=== PATIENT | female | born 1980 ===

== ENCOUNTER 2017-10-09 08:00 | Inpatient (IN) | payer OTHER ==
[2017-10-17] MEDS ORDERED: KETOROLAC TROMETHAMINE 30 MG/1 ML VIAL ONE (13:44)
[2017-10-17] MEDS ORDERED: SUCCINYLCHOLINE CHLORIDE 200 MG/10 ML VIAL ONE (13:46)
[2017-10-17] MEDS ORDERED: PROPOFOL 20 ML ONE (13:46)
[2017-10-17] MEDS ORDERED: morphine SULFATE/Preservative Free 0.5 MG/ML (1cc Syringe) ONE (13:56)
[2017-10-17 13:57] LABS: BASO % 0.7 % (0-2.0); HEMATOCRIT 35.9 % (32.4-45.2); HEMOGLOBIN 11.8 GM/dL (10.7-15.3); LYMPH % 25.6 % (8-40); MCH 29.8 pg (25.7-33.7); MCHC 32.8 g/dl (32.0-36.0); MEAN CELL VOLUME 90.8 fl (80-96); MEAN PLT VOLUME 9.7 fl (7.5-11.1); NEUT % 62.7 % (42.8-82.8); PLATELET COUNT 204 K/MM3 (134-434); RBC 3.96 M/mm3 (3.60-5.2); RDW 14.1 % (11.6-15.6); WHITE BLOOD COUNT 8.6 K/mm3 (4.0-10.0)
[2017-10-17] MEDS ORDERED: ELECTROLYTE-148 SOLN 500 ML IV SCH (14:00)
[2017-10-17] MEDS ORDERED: CITRIC ACID/SODIUM CITRATE 30 ML UNIT-DOSE CUP PO ONE (14:00)
[2017-10-17] MEDS ORDERED: TUBERCULIN PPD 5 TU/0.1ML SYRINGE (IN PATIENT USE ONLY) ID ONE (14:00)
[2017-10-17 14:01] VITALS: BMI 32.6
[2017-10-17] MEDS ORDERED: ONDANSETRON 4 MG/2 ML VIAL IVPUSH PRN (14:01)
[2017-10-17] MEDS ORDERED: OXYTOCIN 10 UNITS/ML VIAL ONE ×2 (14:07→15:32)
[2017-10-17 14:11] LABS: INR 0.98 (0.82-1.09); PROTHROMBIN TIME (PATIENT) 11.1 SEC (9.98-11.88)
[2017-10-17 14:13] LABS: ACTIVATED PTT 29.1 SECONDS (26.9-34.4)
[2017-10-17 14:18] LABS: ANION GAP 9 (8-16); BLOOD UREA NITROGEN 7 mg/dL (7-18); CALCIUM 8.5 mg/dL (8.5-10.1); CHLORIDE 105 mmol/L (98-107); CO2 24 mmol/L (21-32); CREATININE 0.6 mg/dL (0.55-1.02); GLUCOSE,RANDOM 73 mg/dL (74-106); POTASSIUM 3.7 mmol/L (3.5-5.1); SODIUM 138 mmol/L (136-145)
[2017-10-17] MEDS ORDERED: ELECTROLYTE-148 SOLN 1,000 ML IV SCH ×2 (14:30→15:00)
--- NOTE | 2017-10-17 14:55 | HP ---
Past Medical History - Admission Chief Complaint: Elective History of Present Illness: 37 yo @ 40 weeks gestation with 3 previous C-Sections, is pre op for repeat . History Source: Patient Limitations to Obtaining History: No Limitations - Past Medical History ...: 5 ...Para: 4 ...Term: 4 ...: 0 ...Spon : 0 ...Induced : 0 ...Multiple Gestation: 0 ...LMP: 01/10/17 ... Weeks Gestation by Dates: 40.0 ...EDC by Dates: 10/17/17 ...EDC by Sono: 10/16/17 - Past Surgical History Past Surgical History: Yes: Hx Myomectomy: No Hx Transabdominal Cerclage: No - Smoking History Smoking history: Never smoked Have you smoked in the past 12 months: No - Alcohol/Substance Use Hx Alcohol Use: No - Social History Usual Living Arrangement: Yes: With Spouse History of Recent Travel: No Home Medications - Allergies Allergies/Adverse Reactions: Allergies Allergy/AdvReac Type Severity Reaction Status Date / Time No Known Allergies Allergy Verified 10/17/17 13:35 Family Disease History - Family Disease History Family History: Unremarkable Review of Systems - Review of Systems Constitutional: reports: No Symptoms Eyes: reports: No Symptoms HENT: reports: No Symptoms Neck: reports: No Symptoms Cardiovascular: reports: No Symptoms Respiratory: reports: No Symptoms Gastrointestinal: reports: No Symptoms Genitourinary: reports: No Symptoms Breasts: reports: No Symptoms Reported Musculoskeletal: reports: No Symptoms Integumentary: reports: No Symptoms Neurological: reports: No Symptoms Endocrine: reports: No Symptoms Pain Intensity: 0 Physical Exam - Maternity Vital Signs: Vital Signs Temperature 97.5 F L 10/17/17 13:15 Pulse Rate 86 10/17/17 13:15 Respiratory Rate 20 10/17/17 13:15 Blood Pressure 115/64 10/17/17 13:15 O2 Sat by Pulse Oximetry (%) Constitutional: Yes: Well Nourished Eyes: Yes: Conjunctiva Clear HENT: Yes: Atraumatic Neck: Yes: Supple Cardiovascular: Yes: Regular Rate and Rhythm Lungs: Clear to auscultation - Abdominal Exam/OB Number of Fetuses: Single Presentation: Vertex Contractions: No - Physical Exam Psychiatric: Yes: Alert, Oriented - Labs Lab Results: CBC, BMP 10/17/17 13:27 10/17/17 13:27 Problem List - Problems (1) Delivery by elective section Code(s): O82 - ENCOUNTER FOR DELIVERY WITHOUT INDICATION Assessment/Plan Previous Pre op for repeat Consent signed Anesthesia to see patient
[2017-10-17] MEDS ORDERED: ceFAZolin SODIUM 1 GM VIAL ONE ×2 (15:17)
[2017-10-17] MEDS ORDERED: ePHEDrine SULFATE 50 MG/1 ML AMPULE ONE (15:18)
[2017-10-17] MEDS ORDERED: oxyCODONE HCL 5 MG TABLET PO PRN (15:53)
[2017-10-17] MEDS ORDERED: METHYLERGONOVINE MALEATE 0.2 MG/1 ML AMP IM PRN (15:53)
--- NOTE | 2017-10-17 15:59 | OP ---
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
[2017-10-17] MEDS ORDERED: OXYTOCIN 20 UNITS in 0.9% NS 20 UNIT/1,000 ML INFUS.BAG IV SCH (16:00)
[2017-10-17] MEDS ORDERED: SEVOFLURANE 250 ML BTL ONE (17:16)
[2017-10-17] MEDS ORDERED: DESFLURANE GAS 240 ML BOTTLE IH ONE (17:16)
--- NOTE | 2017-10-18 06:42 | PN ---
Post Progress Note - Subjective Subjective: Pt seen/evaluated. Doing well. Pain controlled, tolerating clear diet. Armando draining clear yellow urine. No CP/SOB/F/C/PISANO. NO complaints. Type of Delivery: Repeat C/S Vital Signs: Vital Signs Temperature 97.9 F 10/18/17 06:00 Pulse Rate 69 10/18/17 06:00 Respiratory Rate 18 10/18/17 06:00 Blood Pressure 109/68 10/18/17 06:00 O2 Sat by Pulse Oximetry (%) 98 10/17/17 17:18 Uterus: Yes: Fundus Firm Lochia: Yes: Rubra Lochia, amount: Small Extremities: Yes: Calves non-tender Perineum: Yes: Intact Activity: Ambulating - Labs Labs: CBC WBC 8.6 K/mm3 (4.0-10.0) 10/17/17 13:27 RBC 3.96 M/mm3 (3.60-5.2) 10/17/17 13:27 Hgb 11.8 GM/dL (10.7-15.3) 10/17/17 13:27 Hct 35.9 % (32.4-45.2) 10/17/17 13:27 MCV 90.8 fl (80-96) 10/17/17 13:27 MCH 29.8 pg (25.7-33.7) 10/17/17 13:27 MCHC 32.8 g/dl (32.0-36.0) 10/17/17 13:27 RDW 14.1 % (11.6-15.6) 10/17/17 13:27 Plt Count 204 K/MM3 (134-434) 10/17/17 13:27 MPV 9.7 fl (7.5-11.1) 10/17/17 13:27 Neutrophils % 62.7 % (42.8-82.8) 10/17/17 13:27 Lymphocytes % 25.6 % (8-40) 10/17/17 13:27 Monocytes % 10.0 % (3.8-10.2) 10/17/17 13:27 Eosinophils % 1.0 % (0-4.5) 10/17/17 13:27 Basophils % 0.7 % (0-2.0) 10/17/17 13:27 Problem List - Problems (1) delivery delivered Code(s): O82 - ENCOUNTER FOR DELIVERY WITHOUT INDICATION (2) Delivery by elective section Code(s): O82 - ENCOUNTER FOR DELIVERY WITHOUT INDICATION Assessment/Plan 37 y/o POD#1 s/p repeat LTCS - AFVSS - CBC pending - advance diet as tolerated - encourage ambulation - routine care
[2017-10-18 08:45] LABS: BASO % 0.6 % (0-2.0); EOS % 1.3 % (0-4.5); HEMATOCRIT 32.3 % (32.4-45.2); HEMOGLOBIN 10.7 GM/dL (10.7-15.3); MCHC 33.3 g/dl (32.0-36.0); MEAN CELL VOLUME 90.2 fl (80-96); MEAN PLT VOLUME 9.4 fl (7.5-11.1); MONO % 11.9 % (3.8-10.2); NEUT % 71.2 % (42.8-82.8); PLATELET COUNT 178 K/MM3 (134-434); RBC 3.58 M/mm3 (3.60-5.2); RDW 14.1 % (11.6-15.6); WHITE BLOOD COUNT 11.4 K/mm3 (4.0-10.0)
[2017-10-18] MEDS ORDERED: ACETAMINOPHEN 325 MG TABLET (FP) ONE (08:46)
[2017-10-18] MEDS: IBUPROFEN 600 MG TABLET (FP) PO PRN ×4 (08:48→23:01)
[2017-10-18] MEDS: SIMETHICONE 80 MG TAB.CHEW (FP) PO PRN ×3 (08:48→18:19)
--- NOTE | 2017-10-18 10:54 | PN ---
Progress Note (short form) - Note Progress Note: Post op day#1.S/P C section under spinal anesthesia with duramorph uneventful.Patient stable and c/o some pain for which she is on medication.No any anesthesia related problem.Patient Dc from the anesthesia care.
[2017-10-18] MEDS: ACETAMINOPHEN 325 MG TABLET (FP) PO PRN ×3 (13:54→23:00)
[2017-10-18] MEDS ORDERED: BISACODYL 10 MG SUPP.RECT RC PRN (15:53)
--- NOTE | 2017-10-18 15:53 | OP ---
DATE OF OPERATION: 10/17/2017 PREOPERATIVE DIAGNOSIS: Intrauterine at 39 weeks with previous section. POSTOPERATIVE DIAGNOSIS: Elective section. PROCEDURE: Repeat low-transverse section. SURGEON: Danielle Wilson MD FIELD SERVICE COORDINATOR: FLAKITA Johnson ANESTHESIA: Spinal. COMPLICATIONS: None. ESTIMATED BLOOD LOSS: 600 mL. PROCEDURE: Patient was taken to the operating room, where spinal anesthesia was administered. Patient was then prepped and draped in proper sterile fashion. A Pfannenstiel skin incision was made and carried down to the underlying layer of fascia. The fascia was incised in the midline and extended laterally. The superior aspect of the fascial incision was then grasped with a Stephen clamp, elevated, and the rectus muscle dissected off bluntly. Attention was then turned to the inferior aspect of the fascial incision which, in a similar fashion was then grasped with a Stephen clamp, elevated, and the rectus muscle dissected off bluntly. The muscle was then in the midline, the peritoneum identified and entered sharply with the Metzenbaum scissors. The bladder blade was inserted and the vesicouterine peritoneum was then grasped with a pickup and entered sharply with the Metzenbaum scissors. This incision was extended laterally and a bladder flap created digitally. The bladder blade was then reinserted. Then the lower uterine segment was incised using a 10 blade, and the head delivered atraumatically. Nose and mouth were suctioned and the cord clamped and cut. The infant was handed to the waiting masking machine feeder. The placenta was removed manually. The uterus was exteriorized and cleared of all clots and debris. The uterine incision was repaired using 0 Biosyn in a running locked fashion. A 2nd layer of the same suture was used as a means to provide excellent hemostasis. The peritoneum and muscles were then closed using 0 Biosyn, after pelvic irrigation. Then the fascia was reapproximated using 0 Vicryl, and he skin was closed in a subcuticular fashion using 3-0 Vicryl. Patient tolerated procedure well. Patient was taken to PACU in stable condition. Pathology: Placenta. Yadira [id number] MTDD
[2017-10-19] MEDS: IBUPROFEN 600 MG TABLET (FP) PO PRN ×3 (05:37→20:38)
[2017-10-19] MEDS: SIMETHICONE 80 MG TAB.CHEW (FP) PO PRN ×3 (05:37→20:37)
[2017-10-19] MEDS: ACETAMINOPHEN 325 MG TABLET (FP) PO PRN ×3 (05:37→20:38)
--- NOTE | 2017-10-20 07:32 | PN ---
Post Note - Post Date of Delivery: 10/17/17 Post Day: 3 Vital Signs: Vital Signs - 24 hr 10/19/17 21:08 Temperature 97.5 F L Pulse Rate 66 Respiratory 20 Rate Blood Pressure 125/75 - Subjective Subjective: No Complaints, Ambulating - Objective Afebrile: Yes Breast: Not engorged Abdomen: Soft, Non-tender Uterus: Fundus firm, Non-tender Vagina: Scant lochia Extremities: Non-tender - Assessment/Plan (1) delivery delivered Assessment: Other (repeat CS POD3)
[2017-10-20 08:39] VITALS: BP 115/73; PULSE 51; TEMP 98
--- NOTE | 2017-10-22 15:46 | PATH ---
Surgical Pathology Report Patient Name: NESTOR RIVERA Med. Rec. #: [id number] /Age/Gender: 1980 (Age: 37) / F Account: [id number] Location: [facility] OBS/SOLUTION PROFESSIONAL Taken: 10/17/2017 Received: 10/18/2017 Reported: 10/22/2017 Physicians: Danielle Wilson M.D. Specimen(s) Received PLACENTA Clinical History G5 P?, 40 weeks for repeat , previous x2, x2 Final Diagnosis PLACENTA, SECTION: 547 g THIRD TRIMESTER PLACENTA WITH TRIVASCULAR UMBILICAL CORD AND FOCAL ACUTE MILD CHORIOAMNIONITIS. Electronically Signed Zuleima Angelo M.D. Gross Description The specimen is received fresh labeled placenta and is a 547 gram, 19.0 x 15.0 x 2.3 cm. placenta with attached membranes and umbilical cord. The attached membranes are bartlett, translucent with focal opacities and insert marginally. The umbilical cord measures 34 cm. in length and averages 1.2 cm. in diameter. The cord inserts eccentrically, 4 cm. to the nearest margin. No true knots or strictures are identified. Cut surface of the umbilical cord reveals 3 vessels. The surface is vidales-blue with minimal fibrin deposition and appropriate caliber vessels. The maternal surface is red-brown with focal defects. Sectioning reveals red-brown, spongy parenchyma. No lesions are identified. Ripsaw Operator sections are submitted in three cassettes as follows: 1- membrane rolls and umbilical cord; 2-3- full thickness sections of placenta. 10/19/2017 [facility]2017
== END 2017-10-20 12:30 | disposition home or self-care (01) | DRG 766 ==
LOC: JLDR 10-17 13:00 → J3W 10-17 17:50
PROVIDERS: ADMIT Obstetrics & Gynecology; ATTEND Obstetrics & Gynecology
PROC: 10D00Z1 Extraction of Products of Conception, Low, Open Approach (ICD-10-PCS; principal; 2017-10-17)
DX: O34.211 Maternal care for low transverse scar from previous cesarean delivery (principal); O48.0 Post-term pregnancy; Z3A.40 40 weeks gestation of pregnancy; Z37.0 Single live birth
CPT/HCPCS: 36415; 80048; 85025; 85610; 85730; 86593; 86850; 86900; 86901; 88307-TC